=== PATIENT | female | born 1985 | race Caucasian/White ===

== ENCOUNTER 2020-03-22 03:13 | Emergency (ER) | payer MEDICAID ==
[~2020-03-22] VITALS: Ht 165.1 cm; Wt 99.8 kg
[2020-03-22 03:19] VITALS: BP 169/104; Ht 165.1 cm; Wt 99.8 kg
[2020-03-22] MEDS ORDERED: NAPROSYN500 MG PO (04:35)
== END 2020-03-22 04:50 | disposition home or self-care (01) ==
LOC: D.ER 03:13
DX: S20.219A Contusion of unspecified front wall of thorax, initial encounter (principal); S80.211A Abrasion, right knee, initial encounter; W19.XXXA Unspecified fall, initial encounter; Y93.9 Activity, unspecified; Y92.9 Unspecified place or not applicable